=== PATIENT | female | born 1980 | race Caucasian/White ===

== ENCOUNTER → 2019-03-16 | Outpatient (CLI) | payer MEDICARE, MEDICAID | LOC: MC.RAD 10:18 | DX: Z12.31 Encounter for screening mammogram for malignant neoplasm of breast (principal); Z80.3 Family history of malignant neoplasm of breast ==

== ENCOUNTER 2019-04-23 18:42 | Emergency (ER) | payer MEDICARE, MEDICAID ==
[~2019-04-23] VITALS: Ht 162.6 cm; Wt 102.7 kg
[2019-04-23 18:54] VITALS: BP 160/74; PULSE 81; TEMP 98
[2019-04-24] MEDS ORDERED: TOPAMAX 25MG25 M1 PO (01:07)
[2019-04-24] MEDS ORDERED: LAMICTAL200 MG PO ×2 (16:12→16:14)
[2019-04-24] MEDS ORDERED: WELLBUTRIN SR150 M1 PO (16:15)
[2019-04-24] MEDS ORDERED: CYMBALTA 60MG60 MG PO (16:16)
[2019-04-24] MEDS ORDERED: NORVASC2.5 MG PO (16:16)
[2019-04-24] MEDS ORDERED: TOPAMAX 100MG100 M1 (16:16)
[2019-04-24] MEDS ORDERED: CRESTOR20 MG PO (16:19)
[2019-04-24] MEDS ORDERED: SINGULAIR 110 MG/TAB PO (16:19)
[2019-04-24] MEDS ORDERED: TOPAMAX200 MG PO (18:53)
== END 2019-04-23 19:46 | disposition left against medical advice (07) ==
LOC: COL.ER 18:42
DX: Z00.8 Encounter for other general examination (principal); I10 Essential (primary) hypertension; J45.909 Unspecified asthma, uncomplicated; E78.5 Hyperlipidemia, unspecified; F31.9 Bipolar disorder, unspecified

== ENCOUNTER 2019-04-23 23:35 | Emergency (ER) | payer MEDICARE, MEDICAID ==
[~2019-04-23] VITALS: Ht 154.9 cm; Wt 86.4 kg
[2019-04-23 23:51] VITALS: BP 160/77; TEMP 97.9
[2019-04-24 00:40] LABS: BASO # 0.1 (0.0-0.2); BASO % 0.5 % (0.0-2.0); EOS # 0.3 (0.0-0.7); EOS % 2.1 % (0-4.0); GRAN # 9.5 (1.4-6.5); GRAN % 70.4 % (42.2-75.2); LYMPH % 22.3 % (20.0-51.0); MEAN CELL VOLUME 89 fl (80.0-100.0); MEAN CORPUSCULAR HEMOGLOBIN 29 pg (27.0-31.0); MEAN CORPUSCULAR HGB CONC 33 g/dl (33.0-37.0); MEAN PLATELET VOLUME 10.8 fl (7.4-10.4); MONO # 0.6 (0.1-0.6); MONO % 4.4 % (1.7-9.3); PLATELET COUNT 203 K/mm3 (130-400); RED BLOOD COUNT 5.19 M/mm3 (4.10-5.30); REDCELL DISTRIBUTION WIDTH-CV 12.9 % (11.5-14.5)
[2019-04-24 00:53] LABS: ACETAMINOPHEN < 10 ug/mL (10-30); ALANINE AMINOTRANSFERASE 18 U/L (9-52); ALBUMIN 4.5 gm/dL (3.5-5.0); ALCOHOL(ethanol),MEDICAL < 10 mg/dL; ALKALINE PHOSPHATASE 65 U/L (50-136); ANION GAP 10 mmol/L (7-16); AST,SGOT 27 U/L (15-37); BILIRUBIN,TOTAL 0.5 mg/dL (0.0-1.0); BLOOD UREA NITROGEN 18 mg/dL (7-17); CALCIUM 9.6 mg/dL (8.4-10.2); CARBON DIOXIDE 22 mmol/L (22-30); CHLORIDE 111 mmol/L (98-107); GLUCOSE 114 mg/dL (74-106); POTASSIUM 3.7 mmol/L (3.4-5.0); SALICYLATE < 1.0 mg/dL; SODIUM 143 mmol/L (137-145); TOTAL PROTEIN 7.8 gm/dL (6.4-8.2)
[2019-04-24] MEDS ORDERED: TOPAMAX 25MG25 M1 PO (01:07)
[2019-04-24 02:22] LABS: COLLECTION METHOD CLEAN CATCH
[2019-04-24 02:38] LABS: MUCOUS Present /lpf; PH 5 (5-8); TRICYCLIC ANTIDEPRESS URINE NEGATIVE; URINE APPEARANCE Hazy; URINE BACTERIA None Seen /hpf; URINE BILIRUBIN Negative (NEGATIVE); URINE BLOOD Negative (NEGATIVE); URINE COLOR Yellow; URINE GLUCOSE Negative (NEGATIVE); URINE KETONE 1+ (NEGATIVE); URINE LEUKOCYTE ESTERASE Negative (NEGATIVE); URINE NITRATE Negative (NEGATIVE); URINE PROTEIN(semi-quant) Negative (NEGATIVE); URINE UROBILINOGEN Negative (NEGATIVE)
[2019-04-24 08:23] VITALS: PULSE 67
[2019-04-24] MEDS ORDERED: LAMICTAL200 MG PO ×2 (16:12→16:14)
[2019-04-24] MEDS ORDERED: WELLBUTRIN SR150 M1 PO (16:15)
[2019-04-24] MEDS ORDERED: CYMBALTA 60MG60 MG PO (16:16)
[2019-04-24] MEDS ORDERED: TOPAMAX 100MG100 M1 (16:16)
[2019-04-24] MEDS ORDERED: NORVASC2.5 MG PO (16:16)
[2019-04-24] MEDS ORDERED: SINGULAIR 110 MG/TAB PO (16:19)
[2019-04-24] MEDS ORDERED: CRESTOR20 MG PO (16:19)
[2019-04-24] MEDS ORDERED: TOPAMAX200 MG PO (18:53)
== END 2019-04-24 08:23 | disposition home or self-care (01) ==
LOC: COL.ER 23:35
PROVIDERS: Nurse Practitioner
DX: F31.9 Bipolar disorder, unspecified (principal); I10 Essential (primary) hypertension; J45.909 Unspecified asthma, uncomplicated; F44.81 Dissociative identity disorder; F17.210 Nicotine dependence, cigarettes, uncomplicated; F12.90 Cannabis use, unspecified, uncomplicated

== ENCOUNTER 2019-04-24 11:46 | Emergency (ER) | payer MEDICARE, MEDICAID ==
[~2019-04-24 11:46] MED LIST: TOPAMAX 25MG25 M1 PO
[2019-04-24] MEDS ORDERED: LAMICTAL200 MG PO ×2 (16:12→16:14)
[2019-04-24] MEDS ORDERED: WELLBUTRIN SR150 M1 PO (16:15)
[2019-04-24] MEDS ORDERED: NORVASC2.5 MG PO (16:16)
[2019-04-24] MEDS ORDERED: CYMBALTA 60MG60 MG PO (16:16)
[2019-04-24] MEDS ORDERED: TOPAMAX 100MG100 M1 (16:16)
[2019-04-24] MEDS ORDERED: CRESTOR20 MG PO (16:19)
[2019-04-24] MEDS ORDERED: SINGULAIR 110 MG/TAB PO (16:19)
[2019-04-24] MEDS ORDERED: TOPAMAX200 MG PO (18:53)
[2019-04-25 01:39] LABS: BASO # 0.1 (0.0-0.2); BASO % 0.4 % (0.0-2.0); EOS # 0.2 (0.0-0.7); EOS % 1.5 % (0-4.0); GRAN # 9.4 (1.4-6.5); GRAN % 65.1 % (42.2-75.2); HEMATOCRIT 44.3 % (37.0-47.0); HEMOGLOBIN 14.9 g/dl (12.5-16.0); LYMPH # 3.9 (1.2-3.4); LYMPH % 26.6 % (20.0-51.0); MEAN CELL VOLUME 87 fl (80.0-100.0); MEAN CORPUSCULAR HEMOGLOBIN 29 pg (27.0-31.0); MEAN CORPUSCULAR HGB CONC 34 g/dl (33.0-37.0); MEAN PLATELET VOLUME 10.2 fl (7.4-10.4); MONO # 0.9 (0.1-0.6); MONO % 6.1 % (1.7-9.3); PLATELET COUNT 218 K/mm3 (130-400); RED BLOOD COUNT 5.09 M/mm3 (4.10-5.30); REDCELL DISTRIBUTION WIDTH-CV 12.8 % (11.5-14.5)
[2019-04-25 01:45] LABS: ALANINE AMINOTRANSFERASE 19 U/L (9-52); ALBUMIN 4.2 gm/dL (3.5-5.0); ALKALINE PHOSPHATASE 65 U/L (50-136); ANION GAP 10 mmol/L (7-16); AST,SGOT 25 U/L (15-37); BILIRUBIN,TOTAL 0.4 mg/dL (0.0-1.0); BLOOD UREA NITROGEN 17 mg/dL (7-17); CALCIUM 9.7 mg/dL (8.4-10.2); CARBON DIOXIDE 23 mmol/L (22-30); CHLORIDE 110 mmol/L (98-107); CREATININE, serum 0.72 (0.52-1.25); GLUCOSE 105 mg/dL (74-106); POTASSIUM 3.2 mmol/L (3.4-5.0); SODIUM 143 mmol/L (137-145); TOTAL PROTEIN 7.4 gm/dL (6.4-8.2)
[2019-04-25 01:46] LABS: ACETAMINOPHEN < 10 ug/mL (10-30); ALCOHOL(ethanol),MEDICAL < 10 mg/dL; SALICYLATE < 1.0 mg/dL
[2019-04-25 08:14] VITALS: TEMP 97.4
[2019-04-26 06:15] VITALS: BP 132/85; PULSE 81
== END 2019-04-26 18:35 | disposition home or self-care (01) ==
LOC: COL.ER 11:46
PROVIDERS: Nurse Practitioner
DX: F31.9 Bipolar disorder, unspecified (principal)
CPT/HCPCS: J1630; J2060

== ENCOUNTER 2019-05-22 11:31 | Emergency (ER) | payer MEDICARE ==
[~2019-05-22] VITALS: Ht 162.6 cm; Wt 100.0 kg
[~2019-05-22 11:31] MED LIST changes: +CRESTOR20 MG PO; +CYMBALTA 60MG60 MG PO; +LAMICTAL200 MG PO; +NORVASC2.5 MG PO; +SINGULAIR 110 MG/TAB PO; +TOPAMAX 100MG100 M1; +TOPAMAX200 MG PO; +WELLBUTRIN SR150 M1 PO
[2019-05-22 11:34] VITALS: TEMP 98.8
[2019-05-22 12:05] VITALS: BP 162/71
[2019-05-22] MEDS ORDERED: ZYPREXA10 MG PO (12:21)
[2019-05-22 12:42] VITALS: PULSE 75
[2019-05-22] MEDS ORDERED: KLONOPIN 0.5MG0.5 MG PO (16:30)
[2019-05-23] MEDS ORDERED: COGENTIN .0.5 MG/TAB PO (06:55)
== END 2019-05-22 12:43 | disposition home or self-care (01) ==
LOC: COL.ER 11:31
DX: F31.9 Bipolar disorder, unspecified (principal); R44.3 Hallucinations, unspecified; Z88.1 Allergy status to other antibiotic agents

== ENCOUNTER 2019-05-22 13:49 | Emergency (ER) | payer MEDICARE, MEDICAID ==
[~2019-05-22 13:49] MED LIST changes: +ZYPREXA10 MG PO
[2019-05-22 15:09] LABS: BASO # 0.1 (0.0-0.2); BASO % 0.5 % (0.0-2.0); EOS # 0.4 (0.0-0.7); EOS % 4.2 % (0-4.0); GRAN # 6.5 (1.4-6.5); GRAN % 62.7 % (42.2-75.2); HEMOGLOBIN 13.4 g/dl (12.5-16.0); LYMPH # 2.8 (1.2-3.4); LYMPH % 26.7 % (20.0-51.0); MEAN CELL VOLUME 89 fl (80.0-100.0); MEAN CORPUSCULAR HEMOGLOBIN 29 pg (27.0-31.0); MEAN CORPUSCULAR HGB CONC 33 g/dl (33.0-37.0); MEAN PLATELET VOLUME 11.3 fl (7.4-10.4); MONO # 0.6 (0.1-0.6); MONO % 5.7 % (1.7-9.3); PLATELET COUNT 210 K/mm3 (130-400); RED BLOOD COUNT 4.62 M/mm3 (4.10-5.30); REDCELL DISTRIBUTION WIDTH-CV 12.1 % (11.5-14.5)
[2019-05-22 15:12] LABS: ALANINE AMINOTRANSFERASE 44 U/L (9-52); ALBUMIN 3.6 gm/dL (3.5-5.0); ALKALINE PHOSPHATASE 64 U/L (50-136); ANION GAP 7 mmol/L (7-16); AST,SGOT 46 U/L (15-37); BILIRUBIN,TOTAL 0.3 mg/dL (0.0-1.0); BLOOD UREA NITROGEN 12 mg/dL (7-17); CALCIUM 9.1 mg/dL (8.4-10.2); CARBON DIOXIDE 29 mmol/L (22-30); CHLORIDE 107 mmol/L (98-107); CREATININE, serum 0.65 (0.52-1.25); GLUCOSE 102 mg/dL (74-106); POTASSIUM 3.3 mmol/L (3.4-5.0); SODIUM 143 mmol/L (137-145); TOTAL PROTEIN 6.6 gm/dL (6.4-8.2)
[2019-05-22 15:19] LABS: ALCOHOL(ethanol),MEDICAL < 10 mg/dL
[2019-05-22] MEDS ORDERED: KLONOPIN 0.5MG0.5 MG PO (16:30)
[2019-05-22 17:40] LABS: COLLECTION METHOD CLEAN CATCH
[2019-05-22 17:51] LABS: MUCOUS Present /lpf; PH 7 (5-8); SQUAMOUS EPITHELIAL 0-2 /hpf; URINE APPEARANCE Clear; URINE BACTERIA Rare /hpf; URINE BILIRUBIN Negative (NEGATIVE); URINE BLOOD Negative (NEGATIVE); URINE COLOR Yellow; URINE GLUCOSE Negative (NEGATIVE); URINE KETONE Trace (NEGATIVE); URINE LEUKOCYTE ESTERASE Negative (NEGATIVE); URINE NITRATE Negative (NEGATIVE); URINE PROTEIN(semi-quant) Negative (NEGATIVE); URINE RBC 0-2 /hpf
[2019-05-22 17:56] LABS: TRICYCLIC ANTIDEPRESS URINE NEGATIVE
[2019-05-23] MEDS ORDERED: COGENTIN .0.5 MG/TAB PO (06:55)
[2019-05-23 10:00] VITALS: TEMP 98.2
[2019-05-23 15:21] VITALS: BP 132/73; PULSE 94
== END 2019-05-23 15:17 ==
LOC: COL.ER 13:49
PROVIDERS: Family Medicine
DX: F29 Unspecified psychosis not due to a substance or known physiological condition (principal); F20.9 Schizophrenia, unspecified; F32.9 Major depressive disorder, single episode, unspecified

== ENCOUNTER 2020-05-10 10:15 | Outpatient (RCR) | payer MEDICARE, MEDICAID ==
[~2020-05-10 10:15] MED LIST changes: +COGENTIN .0.5 MG/TAB PO; +KLONOPIN 0.5MG0.5 MG PO
== END 2020-05-14 | disposition home or self-care (01) ==
LOC: MKS.ESL.PT
DX: M17.11 Unilateral primary osteoarthritis, right knee (principal)